=== PATIENT | female | born 1980 | race Caucasian/White ===

== ENCOUNTER 2017-12-13 02:36 | Emergency (ER) | payer OTHER ==
[~2017-12-13] VITALS: Ht 170.2 cm; Wt 81.8 kg
[2017-12-13] MEDS ORDERED: morphine 4 MG/ML inj SYRINge IV ONE (02:55)
[2017-12-13] MEDS ORDERED: ondansetron/PF 4mg/2ml inj IV ONE (02:55)
[2017-12-13] MEDS ORDERED: normal saline 1000ML IV soln IVB ONE (03:10)
[2017-12-13] MEDS ORDERED: morphine 2 MG/ML inj. syringe IV ONE (03:10)
[2017-12-13] MEDS ORDERED: propofol 10mg/ml 20ml vial IV ONE (03:10)
[2017-12-13] MEDS ORDERED: HYDR-565 PO (05:03)
[2017-12-13 05:48] VITALS: BP 110/64
== END 2017-12-13 05:59 | disposition home or self-care (01) ==
LOC: ER 02:36
DX: S82.851A Displaced trimalleolar fracture of right lower leg, initial encounter for closed fracture (principal); F12.10 Cannabis abuse, uncomplicated; Z88.0 Allergy status to penicillin; W18.39XA Other fall on same level, initial encounter; Y93.89 Activity, other specified; Y92.89 Other specified places as the place of occurrence of the external cause; Y99.8 Other external cause status
CPT/HCPCS: 27818; 73600; 73610; 96361; 96374; 96375; 99285; A6449; J2270; J2405; J2704; J7030